=== PATIENT | female | born 1990 | race Caucasian/White ===

== ENCOUNTER 2018-04-11 10:25 | Outpatient (CLI) | payer BC ==
[2018-04-11 15:41] LABS: MEAN RETIC VALUE 101.7; RED BLOOD COUNT 4.38 10^6/uL (4.20-5.40)
[2018-04-11 16:02] LABS: THYROID STIMULATING HORMONE 1.56 uIU/mL (0.34-5.60)
[2018-04-11 16:08] LABS: FERRITIN 30.1 ng/mL (11.0-306.8)
== END 2018-04-11 10:26 | disposition home or self-care (01) ==
LOC: LAB.R 10:25
PROVIDERS: ATTEND Nurse Practitioner Primary Care
DX: R25.1 Tremor, unspecified (principal); D64.9 Anemia, unspecified
CPT/HCPCS: 82607; 82728; 83010; 84443; 85044; 86880